=== PATIENT | female | born 2000 | race Caucasian/White ===

== ENCOUNTER 2023-08-09 21:35 | Inpatient (IN) | payer BC, MEDICAID, SELFPAY ==
[2023-08-09] VITALS (15 sets, daily range): BP systolic 131–195; BP diastolic 66–128; PULSE 76–113; RESP 17; TEMP 35.7–36.5; BMI 28.9
[2023-08-09 21:52] LABS: Basophils # 0.1 10^3/uL (0.0-0.1); Basophils % 0.3 %; Eosinophils # 0.1 10^3/uL (0.0-0.8); Eosinophils % 0.6 %; Lymphocytes # 1.9 10^3/uL (0.8-4.8); Lymphocytes % 12.4 %; Mean Corpuscular HGB Conc 34.6 g/dL (30-55); Mean Corpuscular Hemoglobin 31.1 pg (27-33); Mean Corpuscular Volume 89.9 fl (85-98); Mean Platelet Volume 11.2 fL (7.4-10.4); Monocytes # 0.8 10^3/uL (0.2-0.9); Monocytes % 5.2 %; Neutrophils # 12.48 10^3/uL (1.8-7.7); Neutrophils % 80.9 %; Nucleated Red Blood Cells % 0 %; Platelet Count 242 10^3/cmm (157-399); Red Blood Count 4.34 10^6/uL (3.85-5.65); Red Cell Distribution Width 11.9 % (12.1-15.1); White Blood Count 15.42 10^3/uL (3.29-11.43)
[2023-08-09] MEDS: oxytocin 30 UNIT/500 ML BAG 600 UNIT IV (22:08)
[2023-08-09] MEDS: dextrose 5%-lactated ringers 1,000 ML 125 ML IV (22:09)
--- NOTE | 2023-08-09 22:17 | P.HPUD_ITS ---
Labor & Delivery H&P Update Date of Procedure: August 09, 2023 Date H&P Performed: 08/09/23 Admission Diagnosis: 23-year-old 2 para 1-0-0-1 at 40 weeks estimated gestational age presenting in active labor Planned procedure: Spontaneous vaginal delivery Other information: The patient is a 23-year-old female who has had an unremarkable . She was seen in my office today and had her membranes stripped at that time. She arrived to the [facility] and found to be complete and +1 station. I was contacted and immediately came to the hospital. Her has been relatively unremarkable. Her labs were also mostly unremarkable. Her blood type was O+. Her antibody screen was negative. Her 1 hour glucose screen was 151. She was found to be GBS positive. She is rubella immune. The remainder of her infectious disease profile was within normal limits. Related Problem List Diagnoses (1) 40 weeks gestation of : (2) Group beta Strep positive: A&P Assessment and plan (1) 40 weeks gestation of : She will be delivering her baby intermittently. We have not initiated antibiotics because it is clear she will be delivering shortly after the arrival at the hospital. An IV was obtained. Status: Acute (2) Group beta Strep positive: Status: Acute
--- NOTE | 2023-08-09 22:20 | PM.DELIVERY ---
Delivery Note: Date of delivery: August 09, 2023 Pre-delivery diagnoses: 23-year-old 2 para 1-0-0-1 at 40 weeks estimated gestational age in active labor Post-delivery diagnoses: Status post spontaneous vaginal delivery Procedure: Spontaneous vaginal delivery Delivering Physician: Cisco Self Estimated blood loss (mL): 150 Pre-Delivery Course: The patient presented to the hospital in active labor and was found to be complete with a +1 station. As soon as her IV was set up and she was ready to go we had her push. She pushed for around 15 to 20 minutes. Delivery: DELIVERY: The patient progressed to complete without difficulty. She delivered a female with a weight of 6 pounds 8 ounces with Apgars of 8, 9. The baby was delivered from the RASHAAD position. She was noted to have a double nuchal cord that was not reducible. The cord was then clamped and cut prior to delivery of the body. There was no meconium. The baby did have a bowel movement shortly after delivery. The placenta and 3 vessel cord were delivered intact shortly thereafter. The perineum and vaginal vault were carefully examined. Superficial bilateral vaginal wall lacerations were noted. There was no bleeding. No repair was required. Both the mother and the baby were in stable condition. Post-Delivery Status: Good Coding Level of Care Code Acute Code for Chg Fwd Diagnoses
[2023-08-10] VITALS (12 sets, daily range): BP systolic 123–142; BP diastolic 59–82; PULSE 76–90; RESP 14–18; TEMP 36.6–37.3; O2SAT 97–99
--- NOTE | 2023-08-10 08:01 | PM.OBGYPN ---
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 Her bleeding is within normal limits. Her pain is well controlled. Her baby is sleepy so her breast-feeding has not been as good as she would like. Labor: Station: +1 Amniotic Membrane Status: Ruptured Monitor Mode: Palpation Contraction Pattern: Regular Vitals/I&O/Wt Last Vital Signs Temp 98.6 F 08/10/23 06:21 Pulse 87 08/10/23 06:21 Resp 18 08/10/23 06:21 BP 130/76 08/10/23 06:21 Pulse Ox 98 08/10/23 06:21 O2 Del Method Room Air 08/10/23 06:21 08/09/23 08/10/23 08/10/23 22:59 06:59 14:59 Intake Total 981.25 / 981.25 Output Total 900 / 900 Balance 81.25 / 81.25 Weight last 48 hrs Weight 174 lb Physical Exam Narrative: The patient is alert. She appears comfortable. Her heart has a regular rate and rhythm with no murmurs appreciated. Lungs are clear to auscultation bilaterally. Her fundus is firm and below the umbilicus. Data 08/09/23 21:41 A&P Assessment and plan (1) 40 weeks gestation of : I anticipate routine care. She will likely be discharged home tomorrow evening. (2) Spontaneous vaginal delivery: Attestations Medical Necessity Statement*: Routine care Coding Level of Care Code Acute Code for Chg Fwd Diagnoses 40 weeks gestation of Z3A.40 Spontaneous vaginal delivery O80
[2023-08-10] MEDS: prenatal vitamin Capsule 1 CAP PO (08:06)
[2023-08-10] MEDS: ibuprofen 800 mg tablet PO ×3 (08:06→21:44)
[2023-08-10] MEDS: docusate sodium 100 mg Capsule PO ×2 (08:07→19:48)
[2023-08-10 10:50] LABS: Mean Corpuscular HGB Conc 34.7 g/dL (30-55); Mean Corpuscular Hemoglobin 31.4 pg (27-33); Mean Corpuscular Volume 90.7 fl (85-98); Platelet Count 195 10^3/cmm (157-399); Red Blood Count 3.53 10^6/uL (3.85-5.65); Red Cell Distribution Width 12.1 % (12.1-15.1); White Blood Count 12.42 10^3/uL (3.29-11.43)
[2023-08-11 04:30] VITALS: BP 128/61; PULSE 88; RESP 16; TEMP 36.7; O2SAT 98
--- NOTE | 2023-08-11 06:45 | PM.OBGYDC ---
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 Her course was also unremarkable. Her bleeding was within normal limits. She breast-fed well. Her pain was well controlled. Physical Exam Narrative: The patient is alert. She appears comfortable. Her heart has a regular rate and rhythm with no murmurs appreciated. Lungs are clear to auscultation bilaterally. Her fundus is firm and below the umbilicus. Discharge Data Studies Completed and Pending Laboratory Results WBC 12.42 10^3/uL (3.29-11.43) H 08/10/23 10:38 RBC 3.53 10^6/uL (3.85-5.65) L 08/10/23 10:38 Hgb 11.10 g/dL (11.27-16.99) L 08/10/23 10:38 Hct 32.0 % (36-47) L 08/10/23 10:38 MCV 90.7 fl (85-98) 08/10/23 10:38 MCH 31.4 pg (27-33) 08/10/23 10:38 MCHC 34.7 g/dL (30-55) 08/10/23 10:38 RDW 12.1 % (12.1-15.1) 08/10/23 10:38 Plt Count 195 10^3/cmm (157-399) 08/10/23 10:38 MPV 11.0 fL (7.4-10.4) H 08/10/23 10:38 Neut % (Auto) 80.9 % 08/09/23 21:41 Lymph % (Auto) 12.4 % 08/09/23 21:41 Mclennan % (Auto) 5.2 % 08/09/23 21:41 Eos % (Auto) 0.6 % 08/09/23 21:41 Baso % (Auto) 0.3 % 08/09/23 21:41 Neut # (Auto) 12.48 10^3/uL (1.8-7.7) H 08/09/23 21:41 Lymph # (Auto) 1.9 10^3/uL (0.8-4.8) 08/09/23 21:41 Mclennan # (Auto) 0.8 10^3/uL (0.2-0.9) 08/09/23 21:41 Eos # (Auto) 0.1 10^3/uL (0.0-0.8) 08/09/23 21:41 Baso # (Auto) 0.1 10^3/uL (0.0-0.1) 08/09/23 21:41 Nucleated RBC % (auto) 0 % 08/09/23 21:41 Nucleated RBCs # 0.0 /100WBC 08/09/23 21:41 Blood Type O Positive 08/09/23 21:41 Rho(D) Type Positive 08/09/23 21:41 Antibody Screen Negative 08/09/23 21:41 Vitals Last Vital Signs Temp 97.9 F 08/10/23 23:00 Pulse 89 08/10/23 23:00 Resp 14 08/10/23 23:00 BP 136/82 08/10/23 23:00 Pulse Ox 99 08/10/23 23:00 O2 Del Method Room Air 08/10/23 23:00 Results Labs OB ([facility]): Obstetrics US 04/19/23 Blood Type O Positive 08/09/23 Antibody Screen Negative 08/09/23 Hct 32.0 % (36-47) L 08/10/23 Hgb 11.10 g/dL (11.27-16.99) L 08/10/23 Rho(D) Type Positive 08/09/23 Plt Count 195 10^3/cmm (157-399) 08/10/23 Discharge Plan Discharge Patient Disposition: Home Condition: Stable Prescriptions: New ibuprofen 800 mg Tablet 800 mg PO TID Qty: 45 0RF Continued Alive Premium 120 mcg-25 mg- 66.7 mg tablet,chewable PO Discharge Orders: Discharge Order (Routine); Ordered 08/11/23 Ordered By: iCsco Self Referrals: Cisco Self MD [Physician] - 6 Weeks Discharge Diet: Usual diet Discharge Activity: Limit activity as instructed Patient Instructions: Depression (DC), Bleeding (DC), Hemorrhage (DC), OB Discharge Report, OB Food/Drug Interaction Guide, Opioid Safety, OB Home Care, OB [employer] Parent Packet, OB Vaginal Deliveries Discharge Attestations 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
[2023-08-11] MEDS: prenatal vitamin Capsule 1 CAP PO (08:43)
[2023-08-11] MEDS: ibuprofen 800 mg tablet PO ×2 (08:43→15:28)
[2023-08-11] MEDS: docusate sodium 100 mg Capsule PO ×2 (08:43→18:09)
[2023-08-11 10:00] VITALS: BP 124/78; PULSE 98; TEMP 36.7; O2SAT 98
[2023-08-11 16:56] VITALS: BP 118/71; PULSE 72; TEMP 37.3; O2SAT 97
[2023-08-11] MEDS: flu vacc pf 2023-24 (6 mos+) 60 MCG IM (18:22)
[2023-08-11 22:05] VITALS: BP 130/77; PULSE 67; RESP 18; TEMP 36.8; O2SAT 99
[2023-08-11 22:19] VITALS: BP 130/77; PULSE 67; RESP 18; TEMP 36.8; O2SAT 99
== END 2023-08-11 22:25 | disposition home or self-care (01) | DRG 806 ==
LOC: OBGYN 23:19 → OPOB 08-11 13:14 → OBGYN 08-11 13:14
PROVIDERS: Admitting Provider Family Medicine; PCP Internal Medicine; Visit Provider Family Medicine
DX: O48.0 Post-term pregnancy (principal); O71.4 Obstetric high vaginal laceration alone; Z37.0 Single live birth; Z3A.40 40 weeks gestation of pregnancy; O99.824 Streptococcus B carrier state complicating childbirth; O69.81X0 Labor and delivery complicated by cord around neck, without compression, not applicable or unspecified
CPT/HCPCS: 36415; 59025; 59409; 85025; 85027; 86850; 86900; 90471; 90686; 99211; J2590; J7121

== ENCOUNTER → 2025-08-31 14:50 | Outpatient (BNVA) | payer BC, MEDICAID, SELFPAY | PROVIDERS: PCP Internal Medicine | DX: J02.9 Acute pharyngitis, unspecified (principal) | CPT/HCPCS: 87880 ==